=== PATIENT | female | born 1960 | race Caucasian/White ===

== ENCOUNTER 2016-12-23 15:43 | Emergency (ER) | payer OTHER ==
[2016-12-23 16:43] VITALS: BP 144/78
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
[2016-12-23] MEDS ORDERED: Ibuprofen TAB* 400 MG PO ONE (16:59)
--- NOTE | 2016-12-23 18:20 | RAD ---
INDICATION: Trauma, neck pain. COMPARISON: Personal is made with a prior MRI of the cervical spine from December 12, 2011. TECHNIQUE: Contiguous axial sections were obtained from the skull base through the T3 vertebra. Images were reconstructed in the sagittal and coronal planes. FINDINGS: The vertebra are in normal alignment. No prevertebral soft tissue swelling or fracture is seen. At the C4-C5 level there is moderate disc space narrowing and mild posterior uncinate process spurring. No significant spinal canal narrowing is present. There is moderate neural foraminal narrowing on the left side. The remaining vertebral disc levels appear within normal limits without evidence for spinal canal or neural foraminal narrowing. IMPRESSION: 1. NO EVIDENCE FOR FRACTURE OR SUBLUXATION. 2. MILD CERVICAL SPONDYLOSIS.
--- NOTE | 2016-12-23 18:26 | RAD ---
INDICATION: Trauma, low back pain. COMPARISON: There are no prior studies available for comparison. TECHNIQUE: Contiguous axial sections were obtained beginning above the T12 vertebra and continuing through the L5-S1 disc space. Images were reconstructed in the sagittal and coronal planes. FINDINGS: There is a mild lumbar scoliosis convex toward the left side. The vertebra are otherwise in normal alignment. No fracture is seen. At the L3-L4 level there is a mild broad-based disc bulge and mild hypertrophic changes within the facet joints. No significant spinal canal or neural foraminal narrowing is seen. At the L4-L5 level there is a mild broad-based disc bulge and moderate to severe hypertrophic changes within the facet joints. No significant spinal canal or neural foraminal narrowing is seen. At the L5-S1 level there is no evidence for disc bulge or herniation. There are moderate hypertrophic changes within the facet joints. No significant spinal canal or neural foraminal narrowing is seen. IMPRESSION: 1. NO EVIDENCE FOR FRACTURE. 2. MILD LUMBAR SPONDYLOSIS.
== END 2016-12-23 18:57 | disposition home or self-care (01) ==
LOC: UCCORT 15:43
DX: S16.1XXA Strain of muscle, fascia and tendon at neck level, initial encounter (principal); S39.012A Strain of muscle, fascia and tendon of lower back, initial encounter; S76.012A Strain of muscle, fascia and tendon of left hip, initial encounter; V43.62XA Car passenger injured in collision with other type car in traffic accident, initial encounter; Y93.9 Activity, unspecified; Y92.410 Unspecified street and highway as the place of occurrence of the external cause; Y99.0 Civilian activity done for income or pay; R51 Headache; E06.3 Autoimmune thyroiditis; Z88.0 Allergy status to penicillin; Z88.8 Allergy status to other drugs, medicaments and biological substances; Z90.710 Acquired absence of both cervix and uterus; Z87.891 Personal history of nicotine dependence
CPT/HCPCS: 72125; 72131; 81003; 99213; A9270-GY; G0463

== ENCOUNTER 2019-03-21 19:44 | Emergency (ER) | payer OTHER ==
[2019-03-21 20:14] VITALS: BP 158/87
[2019-03-21] MEDS ORDERED: Phenazopyridine TAB* 100 MG PO ONE (20:35)
[2019-03-21] MEDS ORDERED: Nitrofurantoin Macrocrystals* 50 MG CAP PO ONE (20:35)
--- NOTE | 2019-03-21 20:38 | UC ---
UC General HPI - HPI Summary HPI Summary: pt is c/o a 2 hour hx of frequent-burning urination and bladder pressure. symptoms are worsening. no fever or flank pain. - History of Current Complaint Chief Complaint: [facility] Stated Complaint: URINARY Time Seen by Provider: 03/21/19 20:12 Hx Obtained From: Patient Hx Last Menstrual Period: menopause Onset/Duration: Gradual Onset Timing: Constant Pain Intensity: 7 Associated Signs & Symptoms: Negative: Fever - Allergy/Home Medications Allergies/Adverse Reactions: Allergies Allergy/AdvReac Type Severity Reaction Status Date / Time moxifloxacin Allergy See Comment Verified 03/21/19 20:19 Penicillins Allergy loss of Verified 03/21/19 20:19 consciousness PMH/Surg Hx/FS Hx/Imm Hx Endocrine History: Thyroid Disease - Surgical History Surgical History: Yes Surgery Procedure, Year, and Place: 1984 [place]. 1989 TONSILECTOMY [place]. 1996 TUBAL COM GENERAL. 2006 HYSTER,BLADDER SUSP,COLON ( [place]?) COM GENERAL. 2011 LEFT ROTATOR CUFF - Family History Known Family History: Positive: Cardiac Disease - mat GF, Diabetes, Other - CVA pat GF; mother with Hodgkin's disease, bro with lung CA, drug skyla Negative: Renal Disease - Social History Alcohol Use: None Substance Use Type: None Smoking Status (MU): Former Smoker Type: Cigarettes Length of Time of Smoking/Using Tobacco: 12 yrs Have You Smoked in the Last Year: No When Did the Patient Quit Smoking/Using Tobacco: at age 27 - Immunization History Most Recent Tetanus Shot: 2011 Review of Systems All Other Systems Reviewed And Are Negative: No Constitutional: Negative: Fever, Chills Gastrointestinal: Negative: Vomiting, Diarrhea, Nausea Genitourinary: Positive: Dysuria, Frequency, Urgency. Negative: Hematuria, Vaginal/Penile Discharge Physical Exam Triage Information Reviewed: Yes Appearance: Well-Appearing Vital Signs: Initial Vital Signs Temp 99.6 F 03/21/19 20:08 Pulse 96 03/21/19 20:08 Resp 18 03/21/19 20:08 BP 158/87 03/21/19 20:08 Pulse Ox 100 03/21/19 20:08 Vital Signs Reviewed: Yes Eyes: Positive: Conjunctiva Clear ENT: Positive: Normal ENT inspection Neck: Positive: Supple Respiratory: Positive: No respiratory distress Abdomen Description: Positive: Nontender, No Organomegaly, Soft. Negative: CVA Tenderness (R), CVA Tenderness (L), Distended Bowel Sounds: Positive: Present Neurological: Positive: Alert Psychological: Positive: Age Appropriate Behavior Skin Exam: Normal Diagnostics - Laboratory Lab Results: u/a= 2+ protein, 3+ blood, 3+ leukocytes with culture pending. Course/Dx - Differential Dx - Multi-Symptom Differential Diagnoses: Other - non toxic. no acute abdomen. - Diagnoses Provider Diagnosis: UTI (urinary tract infection) Discharge ED - Sign-Out/Discharge Documenting (check all that apply): Patient Departure All imaging exams completed and their final reports reviewed: No Studies - Discharge Plan Condition: Stable Disposition: HOME Prescriptions: Nitrofurantoin Monohyd/M-Cryst [Macrobid 100 mg Capsule] 100 mg PO BID 5 Days # 10 cap Patient Education Materials: Urinary Tract Infection in Women (ED) Referrals: Marvin Shukla MD [Primary Care Provider] - 7 Days - Billing Disposition and Condition Condition: STABLE Disposition: Home - Attestation Statements Provider Attestation: I was available for consult. This patient was seen by the MARIO. The patient was not presented to , seen by or examined by -Jean Wilson MD
== END 2019-03-21 20:41 | disposition home or self-care (01) ==
LOC: UCCORT 19:44
DX: N39.0 Urinary tract infection, site not specified (principal); Z88.0 Allergy status to penicillin; Z88.1 Allergy status to other antibiotic agents; Z87.891 Personal history of nicotine dependence
CPT/HCPCS: 81003; 87077; 87086; 87186; 99212; A9270-GY; G0463